=== PATIENT | female | born 1980 | race Caucasian/White ===

== ENCOUNTER 2023-05-30 10:12 | Emergency (ER) | payer BC ==
[~2023-05-30] VITALS: Ht 165.1 cm; Wt 69.2 kg
[2023-05-30 10:39] LABS: BILIRUBIN, URINE NEGATIVE (negative); BLOOD/HGB, URINE LARGE (Negative); KETONE, URINE NEGATIVE (Negative); LEUK ESTERASE, URINE NEGATIVE (negative); NITRITE, URINE NEGATIVE (negative); PH, URINE 5.5 (5-7)
[2023-05-30 10:44] LABS: RED BLOOD CELLS, URINE 21-40 /hpf (0-5)
[2023-05-30 10:45] LABS: BACTERIA, URINE NONE SEEN /hpf (negative); CASTS, URINE NONE SEEN \\lpf; COLLECTION TYPE, URINE CLEAN CATCH; CRYSTALS, URINE NONE SEEN (0-1+); EPITHELIAL CELLS, URINE SQUAMOUS 2+ /lpf (0-1+); REFLEX CULTURE, URINE No (No)
[2023-05-30 11:00] LABS: BASOPHILS 0.9 % (0-2); EOSINOPHILS 1.8 % (0-6); HEMOGLOBIN 12.2 g/dL (12.0-18.0); LYMPHOCYTES 28.6 % (24-44); MCH 30.6 (27-36); MCHC 34.9 g/dl (30-36); MCV 87.7 fl (81-99); MONOCYTES 6.1 % (0-12); NEUTROPHILS 62.6 % (39-80); PLATELET COUNT 192 K/uL (140-440); RBC 3.99 M/ul (4.3-5.7); RDW 12.9 (10.5-15.0)
[2023-05-30 11:20] LABS: ALBUMIN 3.5 g/dL (3.4-5.0); ALBUMIN/GLOBULIN RATIO 1.13 (1.1-2.4); ANION GAP 13.1 (7-21); BILIRUBIN, TOTAL 0.3 ng/dL (0.2-1.0); BUN/CREATININE RATIO 18.68 (6.0-28.6); CALCIUM 8.8 mg/dL (8.5-10.1); CREATININE, SERUM 0.91 mg/dL (0.55-1.02); POTASSIUM 4.1 mmol/L (3.5-5.1); PROTEIN, TOTAL 6.6 g/dL (6.4-8.2)
[2023-05-30] MEDS ORDERED: TRANEXAMIC ACI650 MG PO (12:59)
[2023-05-30 13:07] VITALS: BP 119/80
== END 2023-05-30 13:08 | disposition home or self-care (01) ==
LOC: ED 10:12
PROVIDERS: Emergency Medicine
DX: N93.8 Other specified abnormal uterine and vaginal bleeding (principal); N83.292 Other ovarian cyst, left side
CPT/HCPCS: 36415; 76830; 76856; 80053; 81001; 84703; 85025; 99284-25